=== PATIENT | male | born 1940 | race Caucasian/White ===

== ENCOUNTER 2018-05-13 13:38 | Inpatient (IN) | payer MEDICARE, OTHER ==
[~2018-05-13] VITALS: Ht 177.8 cm; Wt 70.3 kg
--- NOTE | ~2018-05-13 | DS ---
[facility] [address], [place] [address] Draft ADMISSION DATE: 05/21/2018 DISCHARGE DATE: 05/23/2018 FINAL DIAGNOSIS: At the time of discharge is end-stage osteoarthritis, right knee. PROCEDURE: Right total knee arthroplasty using an Attune PS knee. HISTORY OF PRESENT ILLNESS: The patient a 78-year-old white male with progressive arthritis in the right knee with mild valgus collapse. He no longer gets significant symptomatic relief from conservative management and presented for an elective total knee replacement. HOSPITAL COURSE: The patient was admitted to Day Surgery on 05/21/2018. He was taken to the operating room, where he underwent an uneventful cemented Attune PS total knee. Postoperatively, he has done surprisingly well. Today, his wound was clean and dry. He has active extension to zero. He flexes almost 105 degrees. His calves are negative. He has no other complaints or concerns. He is being discharged to home to alternate oxycodone and Tylenol as needed for pain relief. We put him back on his Eliquis, which he has been taking for some time for DVT prophylaxis. He has physical therapy set up in [place], [place] and will be starting that early next week. We would like to see him back in 6 weeks for evaluation and x-ray. MD CARLOS Riggins/LA /[id number] Copies: PATIENT NAME: SHOSHANA MCKEON DISCHARGE SUMMARY DATE OF : 38 REPORT #: [id number] PHYSICIAN: BJ GONZALEZ MD PCP: JANEY HURTADO REPORT IS CONFIDENTIAL AND NOT TO BE RELEASED WITHOUT AUTHORIZATION [address] [address] Draft ~ PATIENT NAME: SHOSHANA MCKEON DISCHARGE SUMMARY DATE OF : 38 REPORT #: [id number] PHYSICIAN: BJ GONZALEZ MD PCP: JANEY HURTADO REPORT IS CONFIDENTIAL AND NOT TO BE RELEASED WITHOUT AUTHORIZATION
--- NOTE | 2018-05-15 15:06 | NUR ---
PATIENT HERE TODAY FOR PREADMISSION APPOINTMENT. HE IS SCHEDULED ON 05/21/18 FOR A RIGHT TOTAL KNEE REPLACEMENT. HE HAS ATTENDED A PHYSICAL THERAPY APPOINTMENT ALREADY AND OBTAINED A FRONT WHEELED WALKER. HE IS FROM [place] AND WOULD LIKE PHYSICAL THERAPY SET UP A [facility] IN [facility]. [place] HIS WILL BE HERE TO TRANSPORT HIM HOME AND TO APPOINTMENTS. THEY HAVE 4 STEPS INTO THE HOME AND NO STEPS INSIDE THE HOME. THERE IS A WALK IN SHOWER AND WE TALKED ABOUT GETTING A SHOWER BENCH/CHAIR AND A HAND HELD SHOWER HEAD. QUESTIONS WERE ANSWERED AND CALL PLACED TO KESHIA IN DR CHO OFFICE REGARDING A SCRIPT FOR THE WALKER FOR HIS INSURANCE. THIS INFORMATION WILL BE SENT TO DR CHO OFFICE AND [place] [facility] FOR FURTHER FOLLOW UP.
[2018-05-16] MEDS ORDERED: AMIODARONE HCL200 MG PO (14:08)
[2018-05-16] MEDS ORDERED: ASPIR-LOW81 MG PO (14:08)
[2018-05-16] MEDS ORDERED: ATORVASTATIN CA40 MG PO (14:09)
[2018-05-16] MEDS ORDERED: ENALAPRIL MALEA10 MG PO (14:10)
[2018-05-16] MEDS ORDERED: COREG6.25 MG PO (14:10)
[2018-05-16] MEDS ORDERED: ELIQUIS5 MG PO (14:10)
[2018-05-16] MEDS ORDERED: GLUCOSAMINE HC500 MG PO (14:11)
[2018-05-16] MEDS ORDERED: ISOSORBIDE MONO20 MG PO (14:39)
[2018-05-16] MEDS ORDERED: ISOSORBIDE MONO10 MG PO (14:40)
[2018-05-16] MEDS ORDERED: LEVOTHYROXINE88 MCG PO (14:41)
[2018-05-16] MEDS ORDERED: PROSTATE HEALT1 EAC1 PO (14:43)
[2018-05-16] MEDS ORDERED: MELOXICAM15 MG PO (14:44)
[2018-05-16] MEDS ORDERED: AMBIEN5 MG PO (14:44)
[2018-05-21] MEDS ORDERED: ISOSORBIDE MONO60 MG PO (10:17)
--- NOTE | 2018-05-21 15:21 | NUR ---
05/21/18 1521 Jeanine Rucker 1445 PT ARRIVED TP PACU ON 6L OXY MASK, RESP EVEN AND UNLABORED. PT REACTIVE AND SNORING. 1450 O2 DECREASED TO 2L. PT WOKE TO VERBAL STIMULI AND DENIES NAUSEA AND PAIN. 1452 O2 MASK REMOVED. ICE IN PLACE. 1500 X-RAY AT BEDSIDE.
--- NOTE | 2018-05-21 16:00 | NUR ---
PT ARRIVED FROM PACU VIA STRETCHER. PT A&O, RESPONDING APPROPRIATELY, PERRLA. PACER/DEFIB PLACEMENT, CARDIAC HX, RADIAL PULSES +2, PEDIAL PULSES FAINT BUT VERIFIED WITH DOPPLER, NO EDEMA NOTED, FOTT COMPRESSION DEVICE IN PLACE. RESPIRATION EVEN AND UNLABORED, LUNG SOUNDS CLEAR THROUGHOUT AGUAYO BILATERALLY, NO COUGH NOTED. ABD SOFT, NON-DISTENDED- BOWEL TONES ACTIVE X4, DENIES NAUSEA, ADVANCE DIET TOERLATED. LIMITED ROM POST SPINAL, BLE LIMITED ROM WITH GROSS MOVEMENTS, LEFT LEG TINGLING WITH NO NUMBNESS, RIGHT LEFT NUMB TO UPPER THIGH, CONTINUE TO MONITOR. PT DUE TO VOID. RIGHT KNEE COVERED AT THSI TIME, DRESSING C/D/I.
--- NOTE | 2018-05-21 17:46 | NUR ---
DR. AMEZQUITA AT BEDSIDE TO ASSESS PT AND UPDATE PLAN OF CARE.
--- NOTE | 2018-05-21 18:35 | NUR ---
PT HAS REMAIN A&O. EXTENSIVE CARDIAC HX WITH PACER/DEFIB PLACEMENT, ACCOUNTS PAYABLE MANAGER LESS THAN 3 SECONDS, RADIAL PULSES +2, PEDAL PULSES FAINT BUT NOTED WITH DOPPLER, NO EDEMA NOTED, FOOT COMPRESSION DEVICE IN PLACE. RESPIRATIONS EVEN AND UNLABORED, LUNGS SOUNDS CLEAR THROUGHOUT ALL AGUAYO BILATERALLY, NO COUGH. TOLERATING CARDIAC DIET, DENIES NAUSEA. PT DUE TO VOID, PER DR. AMEZQUITA, IF PT HAS NOT VOIDED BY 1829 BLADDER SCAN FOR RETENTION. SPINAL ANESTHESIA NOT FULLY RESOLVED, GROSS MOVEMENTS OF BLE, N/T FROM KNEES DOWN. RIGHT KNEE COVERED WITH SANTIAGO WRAP, C/D/I. DENIES ANY PAIN SINCE ARRIVING TO UNIT. VARIOUS SURGICAL SCAR NOTED, INTEGUMENTARY WARM, DRY, INTACT. SALINE LOCKED PER ORDER.
[2018-05-21] MEDS ORDERED: I-CAPS WITH LU1 EACH PO (18:42)
--- NOTE | 2018-05-21 19:05 | NUR ---
BEDSIDE REPORT RECEIVED FROM MARY ESPITIA, PT SITTING UP IN BED. HOB ELEVATED. PT DENIES PAIN, FULL SENSATION BLE. FOOT PUMPS IN PLACE BILATERALLY. ICE PACK IN PLACE ON RIGHT KNEE. DRESSING CDI WITH SANTIAGO WRAP. PT DENIES URGE TO VOID AT THIS TIME, DISCUSSED BLADDER SCANNING IF UNABLE TO VOID. SPO2 WNL ON ROOM AIR, CONT. PULSE OX IN PLACE. CALLLIGHT IN LAP.
--- NOTE | 2018-05-21 20:57 | NUR ---
BLADDER SCAN REVEALED 600 + URINE. STATES HE HAS "TWINGES" AND HIS PENIS WAS "ALIVE". WITH ASSISTANCE OF SECOND RN, PT STOOD, IS ATTEMPTING TO URINE. ABLE TO GET SELF OUT OF BED, DENIED NAUSEA, OR DIZZINESS PT GOT UP. SAYS HIS FEELING IS BACK IN HIS LEG, HOWEVER HE FEELS THAT THERE IS SOMETHING ON THE BOTTOM OF HIS RIGHT FOOT, NOT THE SOCK.
--- NOTE | 2018-05-21 21:42 | NUR ---
PT ASSESSMENT COMPLETE. PEDAL PULSES FEINT BILATERALLY, CAP REFILL <3 BLE, CREPITUS PALPATED RIGHT LOWER EXTREMITY. DRESSING CDI. ICE PACKS TO RIGHT KNEE. PT DENIES PAIN, SENSATION INTACT, STATES "IT FEELS LIKE THERES A PAD UNDER MY RIGHT FOOT". VENOUS FOOT PUMPS IN PLACE. LUNGS CLEAR THROUGHOUT, SATURATIONS WNL ON RA. IV ANTIBIOTIC INFUSING WNL. HR REGULAR RHYTHM. CALL LIGHT IN REACH. WILL CONTINUE TO MONITOR. PT GIVEN COLA REQUESTED.
--- NOTE | 2018-05-21 22:14 | NUR ---
TAYLOR INSERTED USING STERILE FIELD. 600 ML OF URINE RETURN. IV ABX COMPLETED AT THIS TIME. IV SALINE LOCKED. PT HAS NO FURTHER NEEDS AT THIS TIME. CALL LIGHT IN REACH.
--- NOTE | 2018-05-22 00:07 | NUR ---
PT SLEEPING IN BED. BREATHING EVEN AND UNLABORED. BILAT FOOT SCD'S PLACED.
--- NOTE | 2018-05-22 01:53 | NUR ---
PT SLEEPING IN BED. BREATHING UNLABORED, O2 SAT AT 93%.
--- NOTE | 2018-05-22 03:10 | NUR ---
PT ASSESSMENT, VITALS COMPLETE. PT CONTINUES TO DENY PAIN, SENSATION INTACT BLE, PEDAL PULSES STRONG BILATERALLY, CREPITUS NOTED RLE. DRESSING CDI WITH SANTIAGO WRAP. LUNGS CLEAR THROUGHOUT ALL LOBES, HR REGULAR RHYTHM. PT STATES PASSING GAS, BOWEL TONES ACTIVE X 4. TAYLOR CATHETER EMPTIED 175 MLS YELLOW URINE, PO INTAKE ENCOURAGED, WATER IN REACH. CALL LIGHT WITH PT.
--- NOTE | 2018-05-22 04:45 | NUR ---
PT SLEEPING IN BED. O2 SAT OF 93%. BREATHING UNLABORED. CALL LIGHT IN REACH.
--- NOTE | 2018-05-22 06:35 | NUR ---
IN PT ROOM FOR MEDICATION ADMINISTRATION. PT RESTING IN BED, TAYLOR CATHETER DRAINING. PT GIVEN DECAF COFFEE, WATER, PO FLUIDS ENCOURAGED. VENOUS FOOT PUMPS ON. PT DENIES PAIN. CALL LIGHT IN REACH.
--- NOTE | 2018-05-22 06:39 | NUR ---
PT ABLE TO STAND W FWW AT SIDE OF BED, C/O NUMBNESS IN RIGHT FOOT WITH STANDING, SENSATION OTHERWISE INTACT, PEDAL PULSES STRONG, CREPITUS PALPATED RIGHT LOWER EXTREMITY. DRESSING CDI THROUGHOUT SHIFT WITH SANTIAGO WRAP. PT DENIES PAIN THROUGHOUT SHIFT, SCHEDULED TYLENOL ADMINISTERED. IV SALINE LOCKED PER . CLAUDIA IN PLACE DUE TO VOID. CARDIAC DIET. VENOUS FOOT PUMPS, HEEL PROTECTORS IN PLACE.
--- NOTE | 2018-05-22 07:15 | NUR ---
REPORT RC'D FROM PRACTICAL NURSE CLINICAL COORDINATOR NURSE, REPORTS URINARY RETENTION, TAYLOR CATH PLACED, CONTINUED RIGHT FOOT NUMBNESS WHILE STANDING, 1PA WITH FWW. PT RESTING IN BED AND PARTICIPATING IN BEDSIDE REPORT. DENIES OTHER NEEDS AT THIS TIME. PER CLAUDIA RAY DC'D THIS MORNING. CALL LIGHT WITHIN REACH.
--- NOTE | 2018-05-22 07:42 | NUR ---
PATIENT UP TO CHAIR FROM BED 1 PERSON ASSIST FWW. PATIENT TRANSFERED WELL. WATER GIVEN. CALL LIGHT IN REACH. NO FURTHER NEEDS AT THIS TIME.
--- NOTE | 2018-05-22 08:24 | OR ---
[facility] [address] [place], [place] [address] Signed DATE OF OPERATION: 05/21/2018 SURGEON: Edgardo Gonzalez MD PREOPERATIVE DIAGNOSIS: End-stage osteoarthritis, right knee with valgus collapse. POSTOPERATIVE DIAGNOSIS: End-stage osteoarthritis, right knee with valgus collapse. PROCEDURE: Right total knee arthroplasty. IMPLANTS: An Attune total knee with a size #7 PS femur, a size #7 fixed-bearing tibial tray, a 5 mm size #7 poly, and a 38 mm all-poly patella. ANESTHESIA: Spinal. SPECIMENS AND COMPLICATIONS: There were none. TOURNIQUET TIME: About 75 minutes. WHAT WAS DONE: The patient was taken to the operating room. After anesthesia was induced and the airway gently supported, the patient's right lower extremity was positioned, prepped and draped in a routine sterile fashion. The leg was exsanguinated with elevation. We then inflated the pneumatic tourniquet to 300 mmHg pressure around the upper thigh. A straight anterior approach was made to the knee through skin and subcutaneous tissue. Hemostasis was achieved with electrocautery. An anteromedial arthrotomy was performed. The patella was turned on edge and about 10 mm were trimmed off the posterior aspect of the patella. Drill holes were then made for 38 mm all-poly patella, which gave us a good coverage. We then trial-fit the 38 mm trial to the patella and measured the resultant height and we had restored 25 mm, which was the preresection height. We then put the patella in the lateral recess and flexed the knee. Using the [email or web address] navigation system, we digitized the distal femur per protocol. We then resected the distal femur at 11 mm off the medial side in neutral varus valgus and about 3 degrees of flexion. Electronically Signed By: EDGARDO GONZALEZ MD 05/22/18 0824 PATIENT NAME: SHOSHANA MCKEON OPERATIVE REPORT DATE OF : 38 REPORT #: [id number] PHYSICIAN: EDGARDO GONZALEZ MD PCP: JANEY HURTADO REPORT IS CONFIDENTIAL AND NOT TO BE RELEASED WITHOUT AUTHORIZATION [facility] [address] [place], [place] [address] Signed The wafers were removed. We then transitioned the navigation system of the proximal tibia. Again, following the [place] protocol, we digitized the proximal tibia and then resected the proximal tibia, taking 4 mm off the medial side in neutral varus valgus and about 3 degrees of posterior slope per the Attune protocol. We then removed the tibial wafer along with remnants of the medial and lateral meniscus, ACL and PCL. We checked the flexion gap. It had an excellent gap with a 5 mm spacer. We then flexed the knee, put the femoral sizing jig on the distal femur. It sized to a size #7. The four-in-one cutting block was placed on the distal femur. Anterior, posterior, and chamfer cuts were made. We then removed the cutting block and the bony debris. The tibial wafer we had removed also sized to a size #7. The notch cutting block was placed on the distal femur. The notch was cut out along with the remnant of the ACL and PCL. We then placed the lamina cell coverer in the knee joint, and there was no additional material to be removed. We therefore put the trial femur on the distal femur and drilled the lug holes. We then put the trial tibia on the tibia with a 5 mm poly. We had full extension, flexion of 130 with excellent stability throughout the range of motion. We marked the rotational alignment of the tibial tray. We then removed all the trials. The proximal tibia was prepared with a standard reamer and broach. The knee was then copiously irrigated and meticulously dried. The final components were then cemented into place. Marginal cementocytes were sought and removed. We then cycled the knee. We were happy with all aspects of the construct. We therefore removed the trial poly. Snap-fit a real [address] The knee was then copiously irrigated one more time. Injected with a local anesthetic mixture and a routine wound closure accomplished. Sterile dressing was applied, and he was awakened and taken to recovery room where he arrived in stable condition. Counts were correct and antibiotic protocols were followed. Edgardo Gonzalez MD WFB/MODL /[id number] Copies: ~ Electronically Signed By: EDGARDO GONZALEZ MD 05/22/18 0824 PATIENT NAME: SHOSHANA MCKEON OPERATIVE REPORT DATE OF : 38 REPORT #: [id number] PHYSICIAN: EDGARDO GONZALEZ MD PCP: JANEY HURTADO REPORT IS CONFIDENTIAL AND NOT TO BE RELEASED WITHOUT AUTHORIZATION
--- NOTE | 2018-05-22 09:30 | NUR ---
PT SITTING COMFORTABLY IN CHAIR. DR. GONZALEZ IN ROOM TO ASSESS PT AND UPDATE PLAN OF CARE. A&O X4, RESPONDING APPROPRIATELY, PERRLA. ACID PLACEMENT, EXTENSIVE CARDIAC HX, HEART RHYTHM REGULAR, ARCHITECT IN TRAINING LESS THAN 3 SECONDS, PERIPHERAL PULSES PALPABLE +2, NO EDEMA NOTED, DENIES N/T. RESPIRATIONS EVEN AND UNLABORED, LUNG SOUNDS CLEAR THROUGHOUT ALL AGUAYO, NO COUGH. ABD SOFT, NON-DISTENDED, DENIES NAUSEA, BM THIS AM, DUE TO VOID, TOLERATING CARDIAC DIET. ROM AND STRENGTH IMPROVING, PHYSICAL THERAPY IN ROOM TO AMBULATE PT. RIGHT KNEE COVERED WITH SANTIAGO WRAP, C/D/I. INTEGUMENTARY WARM, DRY, INTACT. SALINE LOCKED, IV SITE FLUSHED WITH 10ML NS, PATENT, WNL. DENIES OTHER NEEDS. PT UP TO AMBULATE IN HALLWAY WITH PHYSICAL THERAPY.
--- NOTE | 2018-05-22 10:07 | NUR ---
MED REC COMPLETE
--- NOTE | 2018-05-22 10:13 | NUR ---
PATIENT UP IN CHAIR. FRESH WATER GIVEN. CALL LIGHT IN REACH. NO FURTHER NEEDS AT THIS TIME.
--- NOTE | 2018-05-22 10:20 | NUR ---
PT RESTING COMFORTABLY IN CHAIR. NO ACUTE CHANGES. DENIES PAIN AT THIS TIME. DENIES NEED TO VOID. WILL CONTINUE TO MONITOR URGE TO VOID, WILL BLADDER SCAN IF NO VOID. DENIES OTHER NEEDS. CALL LIGHT WITHIN REACH.
--- NOTE | 2018-05-22 12:40 | NUR ---
INFORMED PROVIDER THAT PT HAS NOT VOIDED SINCE TAYLOR REMOVAL, BLADDER SCAN SHOWED 113ML RESIDUAL. WILL AWAIT ORDERS.
--- NOTE | 2018-05-22 13:38 | NUR ---
PT 1 PA WITH FWW TO RESTROOM, UNABLE TO VOID, 250 ML BOLUS TO BE GIVEN PER MD. PT ASSISTED BACK TO CHAIR. ICE TO RIGHT KNEE. DENIES OTHER NEEDS. CALL LIGHT WITHIN REACH. WILL CONTINUE TO MONITOR OUTPUT.
--- NOTE | 2018-05-22 14:08 | NUR ---
PATIENT UP IN CHAIR. FRESH WATER GIVEN. CALL LIGHT IN REACH. NO FURTHER NEEDS AT THIS TIME.
--- NOTE | 2018-05-22 15:22 | NUR ---
PT ASSISTED FROM RESTROOM, UNABLE TO VOID, BLADDER SCAN SHOWS 281 ML IN BLADDER. PT C/O RIGHT LOWER LEG/CALF DISCOMFORT, CREPITUS NOTED. PHONE TO REGARDING FINDING, ORTHOSTATIC VITAL TO BE OBTAINED AND PHONE TO TO UPDATE HIM ON PT. PHONE CALL TO 'S OFFICE AND SPOKE WITH IVAN MEHTA RC'D TO HAVE RETURN PHONE CALL. WILL AWAIT NEW ORDERS.
--- NOTE | 2018-05-22 16:20 | NUR ---
ORTHOSTATIC BP OBTAINED AFTER PT SUPINE FOR 5 MINS, BP125/82 AND PULSE 60, DENIES DIZZINESS, WAKNESS, VISUAL CHANGES. PT ASSISTED TO SIDE OF BED FOR 1 MIN, BP 127/84 AND PULSE 60, DENIES CHANGES. PT INSRUCTED TO STAND AND VITALS OBTAINED, BP 116/83 AND PULSE 63, DENIES CHANGES. VITALS OBTAINED AFTER PT STANDING FOR 3 MINS, BP 120/84 AND PULSE 59, DENIES DIZZINESS, VISUAL CHANGES, WEAKNESS, NO PALLOR OR DIAPHORESIS NOTED. PT ALSO VOIDED 100 ML URINE. PT STATES HE NEEDS TO WAIT FOR ANOTHER "URGE TO GO." WILL CONTINUE TO MONITOR.
--- NOTE | 2018-05-22 17:02 | NUR ---
PHONE CALL RC'D FROM DR. GONZALEZ, UPDATED ON PT'S CONDITION, NO NEW ORDERS AT THIS TIME. CONTINUE TO MONITOR FOR EDEMA OR WROSENING OF SYMPTOMS.
--- NOTE | 2018-05-22 18:01 | NUR ---
PATIENT SITTING UP IN CHAIR WATCHING TV. FRESH WATER GIVEN. CALL LIGHT IN REACH. NO FURTHER NEEDS AT THIS TIME.
--- NOTE | 2018-05-22 18:42 | NUR ---
OVERALL PT HAD A GOOD DAY WITH WELL MANAGED PAIN, NO PRN PAIN MEDS, SCHEDULED TYLENOL COVERING PAIN WELL. NUMBESS RESOLVED, AMBULQATING WELL WITH PHYSICAL THERAPY, SBA WITH FWW, ENCOURGE FWW USE. ENCOURAGE PO FLUID INTAKE. PT CONTINUES TO HAVE RENTENTION, 175ML OUTPUT FOR ENTIRE SHIFT, PROVIDER AWARE, 250 ML BOLUS GIVEN, LAST BLADDER SCAN PRE VOID WAS 281 MLS. OTRHOSTATIC VITALS, WNL. CREPITUS INCREASED IN RIGHT LOWER LEG WITH C/O MILD PAIN IN LATERAL LOWER LEF/CALF, DR. GONZALEZ AWARE, CONTINUE TO MONITOR FOR EDEMA, WARMTH, REDNESS, INCREASED PAIN.
--- NOTE | 2018-05-22 19:05 | NUR ---
IN ROOM FOR REPORT. PT RESTING IN BED. NO REQUESTS AT THIS TIME. CALL LIGHT IN PLACE.
--- NOTE | 2018-05-22 21:20 | NUR ---
IN ROOM TO ADMIN PT. MEDS. PT C/O 2/10 PAIN IN BACK OF RIGHT CALF. PT GIVEN 650 MG APAP FOR 2/10 PAIN. WILL REASSESS. BACK OF PT'S RIGHT CALF WARM TO THE TOUCH. SKIN TIGHT AROUND LOWER HDEZ AND CALF. PEDAL PULSES FELT. RIGHT PEDAL PULSE WEAK/THREADY. CR <3 SECONDS BILATERALLY. PT. SHIFT ASSESSMENT COMPLETE. HEART SOUNDS HEARD. LS CLEAR. BT ACTIVE. PT REFUSED MILK OF MAG STATING "I DON'T WANT THAT STUFF, I HAVE ALREADY GONE TWICE TODAY". PT VOIDED 120 MLS OF CLEAR YELLOW URINE IN URINAL. PT DENIES ANY FURTHER REQUESTS AT THIS TIME. CALL LIGHT WITHIN REACH.
--- NOTE | 2018-05-22 21:42 | NUR ---
REPORT RECEIVED FROM MARY VENTURA. PT RESTING SUPINE IN BED, ALERT TO VOICE AND DENIES HAVING ANY NEEDS OR CONCERNS. CALL LIGHT AND H20 IN REACH.
--- NOTE | 2018-05-22 22:13 | NUR ---
PT RESTING SUPINE IN BED, RR16 PT APPEARS TO BE SLEEPING COMFORTABLY. CALL LIGHT IN REACH.
--- NOTE | 2018-05-22 23:07 | NUR ---
PT RESTING SUPINE IN BED, ALERT TO VOICE. "I'M JUST USING THE URINAL" PT DENIES NEEDING ASSISTANCE "NO I'M DOING FINE THANK YOU". CALL LIGHT IN REACH, SCD'S IN PLACE.
--- NOTE | 2018-05-23 02:17 | NUR ---
PT RESTING SUPINE IN BED, RR16, PT ALERT TO VOICE. SCHEDULED PO TYLENOL ADMINISTERED. FRESH ICE APPLIED TO RIGHT KNEE AND PT GIVEN FRESH WATER. PULSE +1 TO RIGHT FOOT, CAP REFILL <2SECONDS. ASSESSMENT COMPLETED. CALL LIGHT IN REACH.
--- NOTE | 2018-05-23 04:25 | NUR ---
PT RESTING SUPIN EIN BED, EYES CLOSED AND PT APPEARS TO BE SLEEPING COMFORTABLY. SCD'S IN PLACE, ICE IS APPLIED TO RIGHT KNEE. CALL LIGHT AND H20 IN REACH.
--- NOTE | 2018-05-23 05:33 | NUR ---
VITALS AND I&OS DONE AND CHARTED. BEDSIDE TABLE AND CALL LIGHT WITHIN REACH. PT NEEDS NOTHING MORE AT THIS TIME.
--- NOTE | 2018-05-23 05:38 | NUR ---
PT HAD GOOD NIGHT AND SLEPT MOST OF SHIFT. PT REPORTS MILD PAIN TO RIGHT CALF. PAIN CONTROLLED WITH SCHEDULED PO TYLENOL. DSG TO RIGHT KNEE CDI. SOME CREPITUS AND SWELLING NOTED TO RIGHT CALF. PT COOPERATIVE WITH PLAN OF CARE. VOIDS QS URINE IN URINAL. TOLORATES ORAL INTAKE WITH NO REPORTS OF NAUSEA. PT IS SBA WITH FWW.
--- NOTE | 2018-05-23 08:42 | NUR ---
PT IN BED, RLE SUPPORTED BILATERALLY WITH ICE PACKS. NO DISTRESS, PT DENIES NAUSEA, SOB. PT DOES NOT REQUEST PAIN MANAGEMENT AT THIS TIME, PAIN INCREASED WITH MOVEMENT. PULSES PALPABLE, NO NUMBNESS OR TINGLING. SCD FOOT PUMPS PLACED BILATERALLY. WILL CONTINUE TO MONITOR.
[2018-05-23] MEDS ORDERED: OXYCODONE HCL5 MG PO (10:34)
[2018-05-23] MEDS ORDERED: ACETAMINOPHEN650 M1 PO (10:34)
== END 2018-05-23 13:30 | disposition home or self-care (01) | DRG 470 ==
LOC: MS 05-21 06:45 → DSVR 05-21 08:45 → MS 05-21 08:45
PROVIDERS: ADMIT Orthopaedic Surgery
PROC: 0SRC0JZ Replacement of Right Knee Joint with Synthetic Substitute, Open Approach (ICD-10-PCS; principal; 2018-05-21 10:45)
DX: M17.11 Unilateral primary osteoarthritis, right knee (principal); Z86.73 Personal history of transient ischemic attack (TIA), and cerebral infarction without residual deficits; I47.9 Paroxysmal tachycardia, unspecified; I25.2 Old myocardial infarction; I25.10 Atherosclerotic heart disease of native coronary artery without angina pectoris; I10 Essential (primary) hypertension; E78.5 Hyperlipidemia, unspecified; Z95.810 Presence of automatic (implantable) cardiac defibrillator
CPT/HCPCS: 01402; 36415; 51798; 64447; 64450; 73560; 76942; 80048; 85025; 97110; 97116; 97161; C1713; C1776; G8978; G8979; J0690; J1100; J2250; J2274; J2704; J2795; J3010; J3370; J7030; J7120